=== PATIENT | male | born 1960 | race Caucasian/White ===

== ENCOUNTER → 2016-12-21 | Day surgery (SDC) | payer BC ==
[~2016-12-21] MED LIST: ACIDOPHILUS PR1 EACH; ACIDOPHILUS PR1 EACH PO; ASPIRIN EC81 M1 PO; BENTYL20 MG PO; CARAFATE PO; CARAFATE1 G PO; CERTAGEN PO; CHROMIUM; CHROMIUM GTF200 MCG PO; CINNAMON 500 MG; CINNAMON ALPHA1 EACH PO; CINNAMON PO; CORTENEMA100 MG/60 RC; FIBER LAXATIVE500 MG PO; FIBER THERAPY; FIBER THERAPY0.52 GM; FISH OIL 1,0001 CAP PO; FISH OIL 1,2001 EAC4 PO; FLAGYL PO; GLUCOTROL PO; INVOKANA300 MG PO; LOMOTIL TABLET1 TAB PO; LORTAB 101 TAB 10/5 DOB; LORTAB 7.5-5001 TAB PO; MULTI VITAMIN1 EACH PO; NEXIUM PO; OMEGA 3 FISH OI1 CAP PO; PRILOSEC PO; PRILOSEC20 MG PO; PRINIVIL5 MG PO; PROBIOTIC & AC1 EACH PO; PROBIOTIC1 EAC2 PO; PROCTOSOL-HC28.35 GM RC; PROCTOZONE HC 2.5%; VIT C PO; VITAMIN C500 M1 PO; VITAMIN C500 M5 PO; VITAMIN D-32000 UNI1 PO; VITAMIN D31000 UNIT PO; ZINC 25 MG; ZINC CHELATE50 MG PO; ZINC SULFATE PO; [UNRECOGNIZED DRUG - OTHER] PO
--- NOTE | ~2016-12-21 | OR ---
Unit #: [id number] #: [id number] Patient: BUBBA LOZANO [id number] [address] [place], [place] [address] [id number] MR#: [id number] NAME: BUBBA LOZANO ROOM: Date of Procedure: 12/21/2016 Admission Date: 12/21/2016 Surgeon: Prince Landin Jr., M.D. : 1960 Attending Physician: Prince Landin Jr., M.D. Primary Care Physician: Demarcus Camargo M.D. OPERATIVE REPORT INDICATIONS FOR PROCEDURE The patient is a 56-year-old white male with a longstanding history for Liao esophagus. His last scope was over a year ago and it was felt he needed a current EGD to rule out occult malignancy or dysplasia. Also, he has had a known past history for multiple colon cancers, had the equivalent of a subtotal colectomy for this. The patient was brought in at this time for EGD as well as flexible sigmoidoscopy. The patient understands the procedure including risks, including that of perforation and bleeding, and consents. PREOPERATIVE DIAGNOSES Past history of Liao esophagus and past history of colon cancer. POSTOPERATIVE DIAGNOSES On upper endoscopy, the patient was noted to have some changes probably compatible with chronic Liao esophagus. No evidence of any cancer. No evidence of any stenosis. Then, on flexible sigmoidoscopy to the distal ileum, the anastomoses were wide open with no evidence of any narrowing. No evidence of any recurrent cancer in the rectosigmoid area. ANESTHESIA MAC anesthesia. PROCEDURES PERFORMED Flexible fiberoptic esophagogastroduodenoscopy with biopsy of the distal esophagus and flexible sigmoidoscopy. DESCRIPTION OF PROCEDURE The patient was positioned in Guerrero position with left side down. After being given MAC anesthesia, the Olympus XQ scope was passed in the proximal esophagus. The entire esophagus was examined. Proximal two-thirds appeared normal. In the area of the distal esophagus near the GE junction, there were changes compatible probably with some chronic Liao esophagus. Several biopsies were taken from this area without significant bleeding. The scope was advanced through the GE junction, the cardia, down to the fundic and antral region of the stomach, retroflexed back up to the area of the cardia. There was no significant hiatal hernia present. The stomach distended well without evidence of rigidity. There was no evidence of any gastric ulcer disease. There was no significant gastritis. The scope was advanced around the prepyloric region down through the pylorus and the duodenal bulb and down to the second portion of the duodenum. The entire duodenal portion examination was within Unit #: [id number] #: [id number] Patient: BUBBA LOZANO normal limits. The scope was then slowly removed. The patient was repositioned for flexible sigmoidoscopy. Digital rectal examination was performed, which revealed no palpable mass or tenderness. No blood or stool in the rectal ampulla. The Olympus colonoscope was advanced through the anal canal up the rectum and retroflexed down to the area of the anorectal region. There were no evidence of any fissures. No significant internal hemorrhoids. The scope was then straightened and advanced up into the rectosigmoid area, where there was a small bowel anastomosis which was widely patent with no evidence of any recurrent cancer in the area. The scope was then advanced up the distal ileum, approximately 25 cm. There was no evidence of any enteritis or other abnormalities. The scope was slowly removed. The patient tolerated the procedure well and discharged in satisfactory condition. Dictated by... Prince Landin Jr., M.D. DEONNA/sondra TD: 12/21/2016 23:24 JOB #: [id number] OPERATIVE REPORT Page 1 of 1 X Prince Landin MD X PROCEDURE OPERATIVE NOTE
== END | disposition home or self-care (01) ==
LOC: COPS 12:30
DX: K21.0 Gastro-esophageal reflux disease with esophagitis (principal); K22.70 Barrett's esophagus without dysplasia; E11.9 Type 2 diabetes mellitus without complications; Z87.891 Personal history of nicotine dependence; Z88.8 Allergy status to other drugs, medicaments and biological substances; Z79.82 Long term (current) use of aspirin; Z79.899 Other long term (current) drug therapy; Z98.890 Other specified postprocedural states
CPT/HCPCS: 88305; J2250